=== PATIENT | male | born 1965 | race Caucasian/White ===

== ENCOUNTER → 2023-12-18 07:45 | Outpatient (REF) | payer BC, SELFPAY ==
[2023-12-18 08:19] LABS: % Basophils 0.8 % (0-2); % Immature Granulocytes 1.8 % (0-0.5); % Monocytes 15.4 % (1.7-9.3); Absolute Eosinophils 0.2 10^3/uL (0-0.7); Absolute Immature Granulocytes 0.1 10^3/uL (0-0.05); Absolute Lymphocytes 1.5 10^3/uL (1.2-3.4); Absolute Monocytes 0.8 10^3/uL (0.1-0.6); Absolute Neutrophils 2.4 10^3/uL (1.4-6.5); Hematocrit 42.1 % (39.0-52.0); Hemoglobin 14.7 g/dL (13.0-18.0); Mean Corp Hgb Conc. 34.9 g/dL (33.0-37.0); Mean Corpuscular Hgb 31.3 pg (27.0-31.0); Mean Corpuscular Volume 89.6 fL (80.0-94.0); Mean Platelet Volume 9.9 fL (7.4-10.4); Nucleated Red Blood Cells % 0 % (-); Platelet Count 191 10^3/uL (130-400); Red Cell Dist. Width 13.1 % (11.5-14.5); White Blood Cell Count 4.9 10^3/uL (4.8-10.8)
[2023-12-18 08:30] LABS: Urine Albumin Negative (Neg - Trace); Urine Bilirubin Negative (Negative); Urine Character Clear (Clear); Urine Color Yellow; Urine Glucose Negative (Negative); Urine Ketone Negative (Negative); Urine Leukocyte Negative (Negative); Urine Nitrite Negative (Negative); Urine Occult Blood Negative (Negative); Urine Specific Gravity 1.015 (<1.030); Urine Urobilinogen Negative (Neg - 1+)
[2023-12-18 09:21] LABS: ALT (SGPT) 58 U/L (0-50); AST (SGOT) 41 U/L (17-59); Albumin 4.4 g/dl (3.5-5.0); Alkaline Phosphatase 86 U/L (38-126); Blood Urea Nitrogen 19 mg/dl (9-20); Calcium 9.4 mg/dl (8.4-10.2); Carbon Dioxide 23 mmol/L (22-30); Chloride 106 mmol/L (98-107); Glucose 114 mg/dl (70-99); HDL Cholesterol 86 mg/dl; LDL Cholesterol, Calculated 62 mg/dl; Potassium 4.1 mmol/L (3.5-5.1); Sodium 138 mmol/L (135-145); Total Bilirubin 0.5 mg/dl (0.2-1.3); Total Cholesterol 162 mg/dl (50-199); Total Protein 7.2 g/dl (6.3-8.2); Triglyceride 70 mg/dl (10-149); Very Low Density Lipoprotein 14 mg/dl (0-30); eGFR > 60.00
[2023-12-18 09:34] LABS: PSA, Total - Screen 0.78 ng/ml (0.0-4.0)
[2023-12-18 09:38] LABS: Glycohemoglobin (HgbA1c) 5.8 % (4.0-5.6)
== END ==
LOC: REG 07:45
PROVIDERS: ATTENDING PHYSICIAN Family Medicine
DX: Z00.00 Encounter for general adult medical examination without abnormal findings (principal)
CPT/HCPCS: 36415; 80053; 80061; 81003; 83036; 85025; G0103

== ENCOUNTER → 2024-01-14 07:42 | Outpatient (REF) | payer BC, SELFPAY ==
[2024-01-14 10:13] LABS: Iron 73 ug/dl (49-181)
[2024-01-14 10:24] LABS: Percent Saturation 24 % (20-50); Total Iron Binding Capacity 293 ug/dl (261-462)
[2024-01-14 15:50] LABS: IgA 342 mg/dl (70-400); IgG 1042 mg/dl (700-1600); IgM 46 mg/dl (40-230)
[2024-01-14 18:52] LABS: Hepatitis B Surface Antigen Negative (Negative)
[2024-01-14 19:10] LABS: Hepatitis B Surface Antibody Negative; Hepatitis C Antibody Negative (Negative)
[2024-01-14 19:56] LABS: Hepatitis A Antibody, Total Negative (Negative)
[2024-01-14 20:19] LABS: Hepatitis B Core Ab, Total Negative (Negative)
[2024-01-15 19:03] LABS: F-Actin Antibody IgG 6 Units (0-19); Mitochondrial M2 Ab, IgG 3.3 Units (0.0-24.9)
[2024-01-16 00:24] LABS: LKM-1 Ab (IgG) 2.3 U (0.0-24.9)
[2024-01-16 01:55] LABS: Alpha-1-Antitrypsin 129 mg/dL (90-200); Ceruloplasmin 21 mg/dL (15-30)
[2024-01-16 01:56] LABS: ANA, IgG Reflex to HEp-2 None Detected (None Detected)
[2024-01-17 07:02] LABS: Endomysial IgA Antibody Titer <1:10 (<1:10)
== END ==
LOC: HWRAD 07:42
PROVIDERS: ATTENDING PHYSICIAN Family Medicine; REFERRING PHYSICIAN Nurse Practitioner Family
DX: K76.0 Fatty (change of) liver, not elsewhere classified (principal)
CPT/HCPCS: 36415; 76700; 82103; 82390; 82728; 82784; 83516; 83540; 83550; 86015; 86038; 86231; 86376; 86381; 86704; 86706; 86708; 86803; 87340

== ENCOUNTER → 2024-02-23 06:24 | Day surgery (SDC) | payer BC, SELFPAY | LOC: GI 06:24 | PROVIDERS: ATTENDING PHYSICIAN Internal Medicine Gastroenterology; FAMILY PHYSICIAN Family Medicine | DX: K31.A0 Gastric intestinal metaplasia, unspecified (principal); K31.89 Other diseases of stomach and duodenum; R12 Heartburn | CPT/HCPCS: 43239; 88305; 88342 ==

== ENCOUNTER → 2024-07-01 12:26 | Outpatient (REF) | payer BC, SELFPAY ==
[2024-07-01 15:27] LABS: % Basophils 0.5 % (0-2); % Eosinophils 0.8 % (0-6); % Immature Granulocytes 1.1 % (0-0.5); % Lymphocytes 15.4 % (20.5-51.1); % Monocytes 11.3 % (1.7-9.3); % Neutrophils 70.9 % (42.2-75.2); Absolute Basophils 0.1 10^3/uL (0-0.2); Absolute Eosinophils 0.1 10^3/uL (0-0.7); Absolute Immature Granulocytes 0.1 10^3/uL (0-0.05); Absolute Lymphocytes 1.6 10^3/uL (1.2-3.4); Absolute Monocytes 1.2 10^3/uL (0.1-0.6); Absolute Neutrophils 7.3 10^3/uL (1.4-6.5); Hematocrit 41.7 % (39.0-52.0); Hemoglobin 14.2 g/dL (13.0-18.0); Mean Corp Hgb Conc. 34.1 g/dL (33.0-37.0); Mean Corpuscular Hgb 31.4 pg (27.0-31.0); Mean Corpuscular Volume 92.3 fL (80.0-94.0); Mean Platelet Volume 9.8 fL (7.4-10.4); Nucleated Red Blood Cells % 0 % (-); Platelet Count 230 10^3/uL (130-400); Red Blood Cell Count 4.52 10^6/uL (4.70-6.10); Red Cell Dist. Width 13.2 % (11.5-14.5); White Blood Cell Count 10.3 10^3/uL (4.8-10.8)
[2024-07-01 16:31] LABS: Erythrocyte Sed Rate 31 mm/hour (0-20)
[2024-07-03 17:05] LABS: ANA, IgG Reflex to HEp-2 None Detected (None Detected)
== END ==
LOC: REG 12:26
PROVIDERS: ATTENDING PHYSICIAN Physician Assistant Surgical
DX: M25.531 Pain in right wrist (principal); M25.561 Pain in right knee; M17.11 Unilateral primary osteoarthritis, right knee
CPT/HCPCS: 36415; 85025; 85652; 86038; 86140; 86430; 86618

== ENCOUNTER 2024-07-06 13:31 | Emergency (ER) | payer BC, SELFPAY ==
[2024-07-06 13:37] VITALS: BP 144/96
--- NOTE | 2024-07-06 13:46 | ED.GENMED ---
ED Provider Triage
<Oli Goins PA-C - Last Filed: 07/06/24 13:47>
-
Patient seen by provider in Triage?: Seen in Triage
58-year-old male with swelling to the right leg worsening over the past several days. He has had intermittent joint aches on the right side of his body including his hand. He has been seen by orthopedics and rheumatology. He was thought to have a
viral illness and now is on prednisone. He finished a 5-day course of Zithromax at the onset of his illness. COVID and flu test were negative however he is concerned about potential blood clot in his leg. No chest pain or shortness of breath
Vital signs are stable through triage she is nontoxic on assessment he does have subtle erythema and swelling to the right calf. Venous ultrasound pending
Patient received a medical screening evaluation by healthcare provider at triage. He warrants further evaluation
History of Present Illness
<Oli Goins PA-C - Last Filed: 07/06/24 13:47>
General
Chief Complaint: Swelling
Time Seen by Provider: 07/06/24 16:04
<David Garnica PA-C - Last Filed: 07/06/24 22:05>
History of Present Illness
History of Present Illness:
58-year-old male presents to the emergency department for evaluation of migratory polyarthralgias. He states that he had a fever approximately a week and a half ago, day of onset of fever he was seen in urgent care and diagnosed empirically with
pneumonia and treated with a 5-day course of azithromycin. He tested negative for COVID and flu at that time. Fever resolved within several days however shortly thereafter developed migratory polyarthralgias of the right elbow, right ankle, right
knee, and right wrist. Saw his presales senior specialist as well as cylinder devalver this past week, was noted to have elevated inflammatory markers and started on steroids empirically. He arrives today concerned due to redness, pain, and swelling of
the right lower extremity. No continued fevers.
Past History
<Oli Goins PA-C - Last Filed: 07/06/24 13:47>
Past History
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
ED Past Surgical History: Orthopedic and Other (Hernia)
Social History
Tobacco: Non-smoker
Alcohol: Occasional
Drug: None
Personal:
Living: with family
Employment: Employed ([employer])
Family History
Family History: Early CAD (father w/ GA in 30s and )
Review of Systems
<David Garnica PA-C - Last Filed: 07/06/24 22:05>
Review of Systems
Allergies reviewed?: Yes
All Other Systems: ROS reviewed and negative except as documented in HPI and ROS
Phy Exam
<David Garnica PA-C - Last Filed: 07/06/24 22:05>
Physical Exam
Physical Exam:
GEN: Well appearing, NAD, WDWN
HEENT: Oral mucosa moist, no scleral icterus
Cardiac: Regular rate
Lung: No respiratory distress, no tachypnea
MSK: No gross deformity or injuries. Patchy erythema to the right anterior lower leg associated with a punctate wound to the central aspect, tender to palpation, no calf edema, calf compartments are soft
Skin: Good color, no pallor or jaundice, no rashes
Neuro: AO x3, moves all extremities freely
Psych: Calm, cooperative
Scores
<CARRIE Collado Last Filed: 07/06/24 22:05>
Heart Failure Risk
Heart Failure Risk Score: Not Applicable
Course
<CARRIE Carpenter Last Filed: 07/06/24 13:47>
Orders/Labs/Results
Orders:
Orders
07/06/24 13:45
Venous Doppler Lwr Ext Rt [US Periph Venous LOWER Ext RT] Urgent
Comment:
Reason For Exam: swelling
07/06/24 15:13
CR Chest - 2 Views Urgent
Comment:
Reason For Exam: cough
Vital Signs
Initial and Last Documented VS:
Initial Vital Signs
Temp Pulse Resp BP Pulse Ox
98.2 F 91 18 144/96 100
07/06/24 13:37 07/06/24 13:37 07/06/24 13:37 07/06/24 13:37 07/06/24 13:37
Last Documented Vital Signs
Temp Pulse Resp BP Pulse Ox
98.2 F 91 18 144/96 100
07/06/24 13:37 07/06/24 13:37 07/06/24 13:37 07/06/24 13:37 07/06/24 13:37
<David Garnica PA-C - Last Filed: 07/06/24 22:05>
Orders/Labs/Results
Orders:
Orders
07/06/24 13:45
Venous Doppler Lwr Ext Rt [US Periph Venous LOWER Ext RT] Urgent
Comment:
Reason For Exam: swelling
07/06/24 15:13
CR Chest - 2 Views Urgent
Comment:
Reason For Exam: cough
Vital Signs
Initial and Last Documented VS:
Initial Vital Signs
Temp Pulse Resp BP Pulse Ox
98.2 F 91 18 144/96 100
07/06/24 13:37 07/06/24 13:37 07/06/24 13:37 07/06/24 13:37 07/06/24 13:37
Last Documented Vital Signs
Temp Pulse Resp BP Pulse Ox
98.2 F 91 18 144/96 100
07/06/24 13:37 07/06/24 13:37 07/06/24 13:37 07/06/24 13:37 07/06/24 13:37
<David Garnica PA-C - Last Filed: 07/06/24 22:05>
MDM/Problems Addressed
MDM/Problems Addressed:
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 RLE pain/redness Most likely cellulitis, will treat empirically
<David Garnica PA-C - Last Filed: 07/06/24 22:05>
*Critical Care Note
Total Time (30-74mins, 75-104mins- exclusive of procedures): Not Applicable
ED Attending Note
<Oli Goins PA-C - Last Filed: 07/06/24 13:47>
-
Portions of this chart may have been created with voice recognition software.� Occasional wrong word or��sound alike� substitutions may have occurred due to the inherent limitations of voice recognition software.
Discharge Plan
Departure
Patient Disposition: Home (Routine Discharge)
Date of Disposition: 07/06/24
Time of Disposition: 16:45
Patient with high blood pressure during this ER visit?: No
Discharge Problem:
Cellulitis of right leg
Instructions: Cellulitis (Skin Infection), Adult ED
Prescriptions:
New
cephalexin 500 mg capsule
500 mg PO Q6H 5 Days Qty: 20 0RF
No Action
L.acidoph, paracasei,B. lactis 1 EACH capsule
1 ea PO DAILY
candesartan 16 MG tablet
32 mg PO HS
zolpidem 10 MG tablet
5 - 10 mg PO HSPRN PRN (Reason: insomnia)
amlodipine 2.5 MG tablet
2.5 mg PO DAILY
aspirin [Aspir-Low] 81 MG tablet,delayed release (DR/EC)
81 mg PO DAILY
tadalafil 5 MG tablet
5 mg PO HS
ibuprofen 200 MG tablet
600 mg PO QID Qty: 1 0RF
Rx Instructions:
take 4x/day (with meals and bedtime) through Thursday night; thereafter take as needed
oxycodone-acetaminophen 5 MG/325 MG tablet
1 tab PO Q4HPRN PRN (Reason: pain not relieved by ibuprofen) Qty: 10 0RF
Referrals:
UNKNOWN - PT DOES,NOT KNOW [Family Provider] -
Interventions
Interventions:
*Risk Screen - Suicide Last Done: 07/06/24 13:37
*General Assessment Last Done: 07/06/24 13:37
*Neglect/Abuse Screening Last Done: 07/06/24 13:37
ED- Fall Risk Assessment Last Done: 07/06/24 17:02
*ED COVID-19 Vaccine History Last Done: 07/06/24 17:02
*Nursing Disposition Last Done: 07/06/24 17:02
ED- Cardiac Assessment Last Done: 07/06/24 16:56
ED- Pulmonary Assessment Last Done: 07/06/24 16:56
ED-Skin Assessment Last Done: 07/06/24 16:56
Discharge Date and Time
Discharge Date/Time: 07/06/24 17:04
Print Language: TELUGU
== END 2024-07-06 17:04 | disposition home or self-care (01) ==
LOC: EMR 13:31
PROVIDERS: EMERGENCY PHYSICIAN Emergency Medicine
DX: L03.115 Cellulitis of right lower limb (principal); I10 Essential (primary) hypertension
CPT/HCPCS: 99284; 71046; 93971

== ENCOUNTER → 2024-07-18 17:34 | Outpatient (REF) | payer BC, SELFPAY | LOC: RAD 17:34 | PROVIDERS: ATTENDING PHYSICIAN Emergency Medicine | DX: J98.8 Other specified respiratory disorders (principal) | CPT/HCPCS: 71046 ==

== ENCOUNTER → 2024-09-29 07:10 | Outpatient (REF) | payer BC, SELFPAY ==
[2024-09-29 07:57] LABS: % Lymphocytes 26.1 % (20.5-51.1); % Monocytes 12.7 % (1.7-9.3); % Neutrophils 55.2 % (42.2-75.2); Absolute Basophils 0.1 10^3/uL (0-0.2); Absolute Eosinophils 0.2 10^3/uL (0-0.7); Absolute Immature Granulocytes 0.1 10^3/uL (0-0.05); Absolute Lymphocytes 1.5 10^3/uL (1.2-3.4); Absolute Monocytes 0.7 10^3/uL (0.1-0.6); Absolute Neutrophils 3.2 10^3/uL (1.4-6.5); Hematocrit 45.5 % (39.0-52.0); Hemoglobin 15.4 g/dL (13.0-18.0); Mean Corp Hgb Conc. 33.8 g/dL (33.0-37.0); Mean Corpuscular Hgb 30.9 pg (27.0-31.0); Mean Corpuscular Volume 91.2 fL (80.0-94.0); Mean Platelet Volume 9.7 fL (7.4-10.4); Nucleated Red Blood Cells % 0 % (-); Platelet Count 186 10^3/uL (130-400); Red Blood Cell Count 4.99 10^6/uL (4.70-6.10); Red Cell Dist. Width 13.7 % (11.5-14.5); White Blood Cell Count 5.8 10^3/uL (4.8-10.8)
[2024-09-29 08:59] LABS: ALT (SGPT) 70 U/L (0-50); AST (SGOT) 38 U/L (17-59); Albumin 4.6 g/dl (3.5-5.0); Alkaline Phosphatase 76 U/L (38-126); Blood Urea Nitrogen 17 mg/dl (9-20); Calcium 9.9 mg/dl (8.4-10.2); Carbon Dioxide 27 mmol/L (22-30); Chloride 103 mmol/L (98-107); Creatine Phosphokinase 190 U/L (55-170); Glucose 116 mg/dl (70-99); Potassium 4.9 mmol/L (3.5-5.1); Sodium 139 mmol/L (135-145); Total Bilirubin 0.7 mg/dl (0.2-1.3); Total Protein 7.4 g/dl (6.3-8.2); Uric Acid 6.6 mg/dl (3.5-8.5); eGFR > 60.00
[2024-09-29 09:20] LABS: Erythrocyte Sed Rate 2 mm/hour (0-20)
[2024-09-29 12:02] LABS: C-Reactive Protein < 5.00 mg/L (0.0-10.00)
[2024-09-29 12:19] LABS: Rheumatoid Agglutinin Less Than 10 IU (<10 IU)
[2024-09-29 13:52] LABS: Complement C3 119 mg/dl (88-165)
[2024-09-29 18:14] LABS: Hepatitis B Surface Antigen Negative (Negative)
[2024-09-29 18:32] LABS: Hepatitis A Antibody, Total Negative (Negative); Hepatitis B Core Ab, Total Negative (Negative); Hepatitis B Surface Antibody Negative
[2024-10-01 02:30] LABS: ds-DNA Ab, IgG Reflex To Titer 17 IU (0-24)
[2024-10-01 03:30] LABS: ANA, IgG Reflex to HEp-2 None Detected (None Detected)
[2024-10-01 11:40] LABS: Quantiferon Mitogen minus NIL 9.98 IU/mL; Quantiferon NIL 0.02 IU/mL; Quantiferon Plus TB1 minus NIL 0.01 IU/mL (<=0.34); Quantiferon Plus TB2 minus NIL 0.02 IU/mL (<=0.34); Quantiferon TB Gold Plus Negative (Negative)
== END ==
LOC: REG 07:10
PROVIDERS: ATTENDING PHYSICIAN Internal Medicine Rheumatology; FAMILY PHYSICIAN Family Medicine
DX: M19.90 Unspecified osteoarthritis, unspecified site (principal); M02.30 Reiter's disease, unspecified site
CPT/HCPCS: 36415; 80053; 82550; 82565; 84550; 85025; 85652; 86038; 86140; 86160; 86225; 86430; 86480; 86704; 86706; 86708; 86812; 87340

== ENCOUNTER → 2025-05-03 06:43 | Outpatient (REF) | payer BC, SELFPAY ==
[2025-05-03 09:39] LABS: C-Reactive Protein < 5.00 mg/L (0.0-10.00); Glucose 118 mg/dl (70-99); HDL Cholesterol 90 mg/dl; LDL Cholesterol, Calculated 97 mg/dl; Very Low Density Lipoprotein 20 mg/dl (0-30)
[2025-05-03 10:22] LABS: Ferritin 208.0 ng/ml (17.9-464.0); PSA, Total - Screen 0.84 ng/ml (0.0-4.0); Vitamin D, 25-OH*** 42.5 ng/mL (30-80)
[2025-05-03 10:53] LABS: Folate 13.1 ng/ml (2.76-20); Vitamin B12 521 pg/ml (239-931)
[2025-05-04 08:49] LABS: Glycohemoglobin (HgbA1c) 5.6 % (4.0-5.6)
[2025-05-05 09:45] LABS: CRP, Ultra Sensitive 0.74 mg/L (0.30-5.00)
[2025-05-05 14:22] LABS: Lipoprotein a (Lp a) 55 mg/dL (<=29)
[2025-05-05 16:15] LABS: Testosterone, Bioavailable 337 ng/dL (131-682)
== END ==
LOC: REG 06:43
PROVIDERS: ATTENDING PHYSICIAN Internal Medicine Rheumatology; FAMILY PHYSICIAN Family Medicine; REFERRING PHYSICIAN Internal Medicine
DX: R73.03 Prediabetes (principal); E78.5 Hyperlipidemia, unspecified; N40.1 Benign prostatic hyperplasia with lower urinary tract symptoms
CPT/HCPCS: 36415; 80061; 82306; 82550; 82607; 82728; 82746; 82947; 83036; 83090; 83525; 83695; 84270; 84402; 84403; 84443; 86140; 86141; G0103

== ENCOUNTER → 2025-05-11 08:09 | Outpatient (REF) | payer BC, SELFPAY ==
[2025-05-11 09:23] LABS: Hematocrit 43.2 % (39.0-52.0); Hemoglobin 14.9 g/dL (13.0-18.0); Mean Corp Hgb Conc. 34.5 g/dL (33.0-37.0); Mean Corpuscular Volume 89.4 fL (80.0-94.0); Nucleated Red Blood Cells % 0 % (-); Platelet Count 197 10^3/uL (130-400); Red Cell Dist. Width 13.1 % (11.5-14.5)
[2025-05-11 09:39] LABS: Urine Character Clear (Clear)
[2025-05-11 09:53] LABS: C-Reactive Protein < 5.00 mg/L (0.0-10.00)
[2025-05-11 09:58] LABS: ALT (SGPT) 43 U/L (0-50); AST (SGOT) 35 U/L (17-59); Albumin 4.8 g/dl (3.5-5.0); Alkaline Phosphatase 68 U/L (38-126); Blood Urea Nitrogen 14 mg/dl (9-20); Calcium 9.6 mg/dl (8.4-10.2); Carbon Dioxide 24 mmol/L (22-30); Chloride 105 mmol/L (98-107); Glucose 121 mg/dl (70-99); Potassium 4.4 mmol/L (3.5-5.1); Sodium 138 mmol/L (135-145); Total Protein 7.8 g/dl (6.3-8.2); Uric Acid 7.1 mg/dl (3.5-8.5); eGFR > 60.00
[2025-05-11 10:11] LABS: Vitamin D, 25-OH*** 46.6 ng/mL (30-80)
[2025-05-11 10:29] LABS: Ferritin 254.0 ng/ml (17.9-464.0)
[2025-05-11 13:53] LABS: Lyme Antibody Screen, EIA Negative (Negative)
[2025-05-11 18:34] LABS: Hepatitis B Surface Antigen Negative (Negative)
[2025-05-11 18:52] LABS: Hepatitis C Antibody Negative (Negative)
[2025-05-13 07:27] LABS: Smith/RNP (ENA), IgG 5 Units (0-19)
[2025-05-13 13:03] LABS: Mitochondrial M2 Ab, IgG 2.1 Units (0.0-24.9)
[2025-05-13 13:35] LABS: ANA, IgG Reflex to HEp-2 None Detected (None Detected)
[2025-05-13 22:37] LABS: ds-DNA Ab, IgG Reflex To Titer 4 IU (0-24)
[2025-05-14 02:15] LABS: LKM-1 Ab (IgG) 1.8 U (0.0-24.9)
[2025-05-14 07:09] LABS: Serine Protease-3, IgG 0 AU/mL (0-19)
== END ==
LOC: REG 08:09
PROVIDERS: ATTENDING PHYSICIAN Internal Medicine; FAMILY PHYSICIAN Family Medicine
DX: E55.9 Vitamin D deficiency, unspecified (principal); M18.9 Osteoarthritis of first carpometacarpal joint, unspecified; M25.50 Pain in unspecified joint; E06.3 Autoimmune thyroiditis; A69.20 Lyme disease, unspecified; M06.09 Rheumatoid arthritis without rheumatoid factor, multiple sites; K75.9 Inflammatory liver disease, unspecified; M60.9 Myositis, unspecified; M35.9 Systemic involvement of connective tissue, unspecified; E07.9 Disorder of thyroid, unspecified; G62.9 Polyneuropathy, unspecified; M06.4 Inflammatory polyarthropathy; D47.2 Monoclonal gammopathy; M32.9 Systemic lupus erythematosus, unspecified; M34.9 Systemic sclerosis, unspecified; D86.9 Sarcoidosis, unspecified; Z51.81 Encounter for therapeutic drug level monitoring; Z15.89 Genetic susceptibility to other disease; L04.9 Acute lymphadenitis, unspecified; D68.61 Antiphospholipid syndrome; K75.4 Autoimmune hepatitis; M45.9 Ankylosing spondylitis of unspecified sites in spine; M06.1 Adult-onset Still's disease; D89.1 Cryoglobulinemia; Z22.7 Latent tuberculosis; I77.82 Antineutrophilic cytoplasmic antibody [ANCA] vasculitis; D89.84 IgG4-related disease; Z13.6 Encounter for screening for cardiovascular disorders
CPT/HCPCS: 36415; 80053; 81003; 82164; 82306; 82550; 82570; 82652; 82728; 82784; 82787; 83516; 83521; 84155; 84156; 84165; 84443; 84550; 85025; 85652; 86015; 86038; 86140; 86160; 86225; 86231; 86235; 86334; 86376; 86381; 86480; 86618; 86704; 86803; 87340; 93005

== ENCOUNTER → 2025-07-11 11:51 | Outpatient (REF) | payer BC, SELFPAY ==
[2025-07-11 13:18] LABS: Hematocrit 43.9 % (39.0-52.0); Hemoglobin 15.1 g/dL (13.0-18.0); Mean Corp Hgb Conc. 34.4 g/dL (33.0-37.0); Mean Corpuscular Volume 89.6 fL (80.0-94.0); Nucleated Red Blood Cells % 0 % (-); Platelet Count 190 10^3/uL (130-400); Red Cell Dist. Width 13.2 % (11.5-14.5)
[2025-07-11 13:46] LABS: Urine Character Clear (Clear)
[2025-07-11 14:15] LABS: Urine Red Blood Cell 0-2 /HPF (0-2); Urine Squamous Cell 0-2 /LPF (Few); Urine White Cell 0-2 /HPF (0-5)
[2025-07-11 14:36] LABS: C-Reactive Protein 42.80 mg/L (0.0-10.00)
[2025-07-11 14:38] LABS: ALT (SGPT) 94 U/L (0-50); AST (SGOT) 52 U/L (17-59); Albumin 4.3 g/dl (3.5-5.0); Alkaline Phosphatase 100 U/L (38-126); Amylase 55 U/L (30-110); Blood Urea Nitrogen 11 mg/dl (9-20); Calcium 9.8 mg/dl (8.4-10.2); Carbon Dioxide 28 mmol/L (22-30); Chloride 103 mmol/L (98-107); Glucose 96 mg/dl (70-99); Lipase 68 U/L (23-300); Sodium 138 mmol/L (135-145); Total Protein 7.4 g/dl (6.3-8.2); eGFR > 60.00
[2025-07-11 15:58] LABS: Potassium 4.2 mmol/L (3.5-5.1)
== END ==
LOC: RAD 11:51
PROVIDERS: ATTENDING PHYSICIAN Internal Medicine; FAMILY PHYSICIAN Physician Assistant Medical
DX: R10.84 Generalized abdominal pain (principal); R19.7 Diarrhea, unspecified; R21 Rash and other nonspecific skin eruption; T50.905A Adverse effect of unspecified drugs, medicaments and biological substances, initial encounter; Z79.899 Other long term (current) drug therapy; M35.9 Systemic involvement of connective tissue, unspecified; M06.4 Inflammatory polyarthropathy; M32.9 Systemic lupus erythematosus, unspecified; Z51.81 Encounter for therapeutic drug level monitoring; L93.2 Other local lupus erythematosus
CPT/HCPCS: 36415; 74177; 80053; 81003; 81015; 82150; 82550; 82570; 83690; 84156; 85025; 85652; 86140; 86160; Q9967

== ENCOUNTER → 2025-07-14 06:32 | Outpatient (REF) | payer BC, SELFPAY | LOC: REG 06:32 | PROVIDERS: ATTENDING PHYSICIAN Internal Medicine Gastroenterology; FAMILY PHYSICIAN Family Medicine | DX: R19.4 Change in bowel habit (principal) | CPT/HCPCS: 82653; 83993; 87045; 87046; 87324; 87427; 87449 ==